=== PATIENT | male | born 1965 | race Caucasian/White ===

== ENCOUNTER → 2018-03-03 | Outpatient (CLI) | payer BC ==
[~2018-03-03] MED LIST: BYSTOLIC10 MG PO; BYSTOLIC5 MG PO; CEPHALEXIN500 MG PO; FENOFIBRATE145 MG PO; FISH OIL 1,0001 EAC2 PO; HYDROCHLOROTHIA25 MG PO; NIACIN500 M1 PO; NORVASC10 MG PO; PANTOPRAZOLE SO40 MG PO; VALACYCLOVIR1000 MG PO
--- NOTE | 2018-03-04 13:18 | Diagnostic Imaging Report ---
TECHNIQUE: Magnetic resonance imaging of the LEFT KNEE was performed WITHOUT injected contrast. HISTORY: Left knee pain COMPARISON: None available. FINDINGS: LIGAMENTS AND TENDONS: ACL: Intact PCL: Intact Collateral ligaments: Intact Iliotibial band: Unremarkable Popliteal tendon: Intact Extensor mechanism: Intact JOINT: Menisci: Medial: Horizontal tear involving the body and posterior horn meniscal extrusion. Flipped meniscal fragment into the meniscotibial recess coronal image 4. Lateral: Intact without tear Articular Cartilage: Medial Compartment: Diffuse high-grade cartilage loss with areas of full-thickness erosion and subchondral edema. Lateral Compartment: Diffuse low grade cartilage loss Patellofemoral Compartment: High-grade cartilage loss at the patellar apex Joint Fluid: Small joint effusion and 6.5 cm Cheng's cyst. BONE: No focal or infiltrative bone marrow replacing abnormality. No acute fracture. SOFT TISSUES: Otherwise, unremarkable. IMPRESSION: Medial meniscus horizontal tear of the body and posterior horn with flipped fragment into the meniscotibial recess. Medial tibiofemoral compartment high-grade cartilage loss with areas of full-thickness erosion and subchondral edema. Small joint effusion and large Cheng's cyst cyst. Signed by: Dr. Marquez Day M.D. on 03/04/2018 1:15 PM
== END ==
LOC: MRI 07:42
PROVIDERS: ATTEND Family Medicine
DX: M23.92 Unspecified internal derangement of left knee (principal)

== ENCOUNTER 2018-09-07 10:01 | Emergency (ER) | payer BC ==
[~2018-09-07] VITALS: Ht 177.8 cm; Wt 117.9 kg
--- OUTSIDE RECORDS SUMMARY | 2018-09-07 10:04 | XMS REPORT ---
Author Author [facility] Address Unknown Phone Unavailable Care Team Providers Care Mailing Jogger Name Role Phone MONIKA NASCIMENTO Unavailable Unavailable Problems This patient has no known problems. Allergies, Adverse Reactions, Alerts This patient has no known allergies or adverse reactions. Medications This patient has no known medications. Results Test Description Test Time Test Comments Text Results Atomic Results Result Comments MRI KNEE LEFT WO 2018-03-04 13:12:00 [facility] [address] [address] Patient Name: YOSEPH DOTSON MR #: [id number] : 1965 Age/Sex: 52/M Req #: [id number] [facility] Physician: Ordered by: NASCIMENTO ANDREW DO Report #: [id number] Location: MRI Room/Bed: Procedure: [id number] MRI/MRI KNEE LEFT WO Exam Date: Exam Time: REPORT STATUS: Signed TECHNIQUE: Magnetic resonance imaging of the LEFT KNEE was performed WITHOUT injected contrast. HISTORY: Left knee pain COMPARISON: None available. FINDINGS: LIGAMENTS AND TENDONS: ACL: Intact PCL: Intact Collateral ligaments: Intact Iliotibial band: Unremarkable Popliteal tendon: Intact Extensor mechanism: Intact JOINT: Menisci: Medial: Horizontal tear involving the body and posterior horn meniscal extrusion. Flipped meniscal fragment into the meniscotibial recess coronal image 4. Lateral: Intact without tear Articular Cartilage: Medial Compartment: Diffuse high-grade cartilage loss with areas of full-thickness erosion and subchondral edema. Lateral Compartment: Diffuse low grade cartilage loss Patellofemoral Compartment: High-grade cartilage loss at the patellar apex Joint Fluid: Small joint effusion and 6.5 cm Cheng's cyst. BONE: No focal or infiltrative bone marrow replacing abnormality. No acute fracture. SOFT TISSUES: Otherwise, unremarkable. IMPRESSION: Medial meniscus horizontal tear of the body and posterior horn with flipped fragment into the meniscotibial recess. Medial tibiofemoral compartment high-grade cartilage loss with areas of full-thickness erosion and subchondral edema. Small joint effusion and large Chegn's cyst cyst. Signed by: Dr. Monika Aguilar M.D. on 03/04/2018 1:15 PM Dictated By: MONIKA AGUILAR MD [id number] Transcribed By: SHAD on 03/04/18 1315 COPY TO: MONIKA NASCIMENTO DO
[2018-09-07] MEDS ORDERED: ASPIRIN 81 MG CHEW TAB PO NR (10:17)
[2018-09-07 11:30] LABS: BASOPHILS # (AUTO) 0.1 (0.0-0.1); BASOPHILS % 0.9 % (0.0-1.0); EOSINOPHILS # (AUTO) 0.1 (0.0-0.4); EOSINOPHILS % 2.2 % (0.0-6.0); HEMATOCRIT 47.6 % (38.2-49.6); LYMPHOCYTES # (AUTO) 1.5 (1.0-3.2); LYMPHOCYTES % 27.6 % (18.0-39.1); MEAN CORPUSCULAR HEMOGLOBIN 32.4 pg (28-32); MEAN CORPUSCULAR HGB CONC 35.7 g/dL (31-35); MEAN CORPUSCULAR VOLUME 90.8 fL (81-99); MONOCYTES # (AUTO) 0.7 (0.2-0.8); NEUTROPHILS # (AUTO) 3.1 (2.1-6.9); NEUTROPHILS % 55.8 % (38.7-80.0); PLATELET COUNT 206 x10e3/uL (140-360); RED BLOOD COUNT 5.24 x10e6/uL (4.3-5.7); RED CELL DISTRIBUTION WIDTH 12.8 % (11.7-14.4)
[2018-09-07 11:50] LABS: INR 0.92; PROTHROMBIN TIME 12.8 seconds (11.9-14.5)
[2018-09-07 11:51] LABS: PARTIAL THROMBOPLASTIN TIME 29.4 seconds (23.8-35.5)
[2018-09-07 11:57] LABS: ALANINE AMINOTRANSFERASE 56 IU/L (0-55); ALBUMIN/GLOBULIN RATIO 1.3 (0.8-2.0); ALKALINE PHOSPHATASE 55 IU/L (40-150); BLOOD UREA NITROGEN 14 mg/dL (7-26); BUN/CREATININE RATIO 14 (6-25); CALCIUM 9.5 mg/dL (8.4-10.2); CARBON DIOXIDE 26 mmol/L (22-29); CHLORIDE 104 mmol/L (98-107); CREATINE KINASE 88 IU/L (30-200); CREATININE, SERUM 1.03 mg/dL (0.72-1.25); EST GLOMERULAR FILTRATION RATE > 60 ML/MIN (60-); GLUCOSE 119 mg/dL (74-118); SODIUM 138 mmol/L (136-145)
--- NOTE | 2018-09-07 14:07 | Diagnostic Imaging Report ---
EXAM: CHEST 2 VIEWS, PA and lateral DATE: 09/07/2018 Time stamp on exam: 10:37 AM INDICATION: Chest pain COMPARISON: None FINDINGS: LINES/TUBES: None LUNGS: No consolidations or edema. PLEURA: No effusions or pneumothorax. HEART AND MEDIASTINUM: Normal size and contour. BONES AND SOFT TISSUES: No acute findings. IMPRESSION: No acute thoracic abnormality. Signed by: Dr. Edu Jenkins DO on 09/07/2018 2:03 PM
[2018-09-07] MEDS ORDERED: HYDRALAZINE HCL 20 MG/ML VIAL IV ONE (14:08)
[2018-09-07] MEDS ORDERED: NIFEDIPINE 10 MG CAP PO ONE (14:08)
[2018-09-07 15:22] LABS: CREATINE KINASE MB 0.9 ng/mL (0-5.0)
[2018-09-07 15:59] VITALS: BP 167/87
== END 2018-09-07 16:01 | disposition home or self-care (01) ==
LOC: ER 10:01
DX: R07.89 Other chest pain (principal); I10 Essential (primary) hypertension
CPT/HCPCS: 36415; 71046; 80053; 82550; 82553; 83036; 83880; 84484; 85025; 85610; 85730; 93005; 99284

== ENCOUNTER → 2018-10-05 | Outpatient (CLI) | payer BC ==
--- NOTE | 2018-10-05 18:20 | Diagnostic Imaging Report ---
Examination: Brain MRI without Contrast History: Memory loss. Comparison studies: None. Technique: Precontrast: Hi resolution Sag T1 with coronal and axial reformats. Axial DWI, T2, T2 flair, gradient echo or SWI Intravenous contrast: None. Findings: Structural lesions: No intra-or extra-axial masses. No hematomas. Atrophy: General: Symmetric and age appropriate. Focal: No disproportionate lobar, hippocampal, mesencephalic, pontine, or cerebellar atrophy. Neal matter: Cortex:No signal abnormalities. No encephalomalacia. Basal ganglia: No atrophy or signal abnormalities. Thalami: No signal abnormalities. Micro hemorrhages: None. White matter signal intensity: No signal abnormalities. Subarachnoid spaces: No signal abnormalities. Ventricles: Normal in size and configuration. No hydrocephalus. Hippocampi, fornix and mammillary bodies: Normal in size and symmetric. Other: Skull: No bone marrow abnormalities. Vessels: Expected flow voids present in the major arteries and dural sinuses.. Sella: Normal in size. No intra-or suprasellar abnormalities. Cranio-cervical junction: No abnormalities. Patent foramen magnum. No Chiari one malformation. Paranasal sinuses: No T2 hyperintense mucosal thickening. IMPRESSION: No intracranial abnormality. Signed by: Dr. Telma Rose M.D. on 10/05/2018 6:17 PM
== END ==
LOC: MRI 16:21
PROVIDERS: ATTEND Family Medicine
DX: R41.3 Other amnesia (principal)
CPT/HCPCS: 70551

== ENCOUNTER → 2019-07-07 | Day surgery (SDC) | payer BC ==
[2019-06-29 15:43] LABS: BASOPHILS % 0.3 % (0.0-1.0); EOSINOPHILS # (AUTO) 0.1 (0.0-0.4); EOSINOPHILS % 1.1 % (0.0-6.0); HEMATOCRIT 47.4 % (38.2-49.6); HEMOGLOBIN 16.6 g/dL (14.0-18.0); LYMPHOCYTES # (AUTO) 1.6 (1.0-3.2); LYMPHOCYTES % 25.6 % (18.0-39.1); MEAN CORPUSCULAR HEMOGLOBIN 32.4 pg (28-32); MEAN CORPUSCULAR VOLUME 92.4 fL (81-99); MONOCYTES # (AUTO) 0.6 (0.2-0.8); MONOCYTES % 10.4 % (4.4-11.3); NEUTROPHILS # (AUTO) 3.8 (2.1-6.9); NEUTROPHILS % 62.4 % (38.7-80.0); PLATELET COUNT 204 x10e3/uL (140-360); RED BLOOD COUNT 5.13 x10e6/uL (4.3-5.7); RED CELL DISTRIBUTION WIDTH 12.1 % (11.7-14.4)
[2019-06-29 16:02] LABS: ANION GAP 10.8 mmol/L (8-16); BLOOD UREA NITROGEN 15 mg/dL (7-26); BUN/CREATININE RATIO 16 (6-25); CALCIUM 9.7 mg/dL (8.4-10.2); CARBON DIOXIDE 29 mmol/L (22-29); CHLORIDE 103 mmol/L (98-107); CREATININE, SERUM 0.96 mg/dL (0.72-1.25); EST GLOMERULAR FILTRATION RATE > 60 ML/MIN (60-); GLUCOSE 90 mg/dL (74-118); POTASSIUM 3.8 mmol/L (3.5-5.1); SODIUM 139 mmol/L (136-145)
[~2019-07-07] MED LIST changes: +BUPIVACAINE 0.25% 30ML SDV INJ ONE; +DEXAMETHASONE SOD PHOS INJ 4 MG/ML VIAL ONE; +FENTANYL CITRATE/PF 100MCG/2 ML INJ ONE; +LIDOCAINE HCL 2% LOCAL INJ 5 ML SDV VIAL INJ ONE; +MIDAZOLAM HCL 2 MG/2 ML VIAL ONE; +ONDANSETRON HCL INJ 2MG/ML 2ML 2 MG/ML VIAL ONE; +PROPOFOL IV EMULSION 10 MG/ML 20 ML VIAL ONE; +ROCURONIUM BROMIDE 10 MG/ML 5ML VIAL ONE; +[UNRECOGNIZED DRUG - CODE] PO; +[UNRECOGNIZED DRUG - OTHER] PO; +[UNRECOGNIZED DRUG - OTHER] PO; +[UNRECOGNIZED DRUG - OTHER] PO; +[UNRECOGNIZED DRUG - OTHER] PO; +[UNRECOGNIZED DRUG - OTHER] PO
[2019-07-07 11:10] VITALS: BP 151/84
--- NOTE | 2019-07-07 16:53 | Operative Report ---
DATE OF PROCEDURE: 07/07/2019 SURGEON: Good Turner MD PREOPERATIVE DIAGNOSIS: Incarcerated umbilical hernia. POSTOPERATIVE DIAGNOSIS: Incarcerated umbilical hernia. OPERATION PERFORMED: Repair of incarcerated umbilical hernia with medium Ventralex patch. FLOOR AND WALL APPLIER LIQUID: HARRIS Yin. ANESTHESIA: General. COMPLICATIONS: None. ESTIMATED BLOOD LOSS: Minimal. DESCRIPTION OF PROCEDURE: With the patient lying in bed in the supine position under good general anesthesia, the abdomen was prepped with Betadine solution and draped in the usual manner. A semilunar subumbilical incision was made, which was carried down through the subcutaneous tissue down to the fascia. The fascia was then cleared all the way around the hernia sac. The hernia sac was then detached from the umbilicus and the hernia sac and contents were reduced back to the intra-abdominal cavity. The preperitoneal space was then developed without any difficulty and a pocket was created. A medium-sized Ventralex patch was then placed in the preperitoneal space and deployed without any problems. The defect was then closed transversely using interrupted sutures of 0 Ethibond anchoring the mesh with the repair. The whole area was then thoroughly irrigated. Perfect hemostasis was ascertained. The umbilicus then tacked back down to the midline fascia with 3-0 Vicryl. The subcutaneous tissue was approximated with 3-0 Vicryl and the skin was closed with subcuticular 5-0 Vicryl. Benzoin, Steri-Strips, and dressings were applied. The sponge, lap, and needle count was correct. The patient tolerated the procedure well and returned to the recovery room in stable condition. Good Turner MD JLR/MODL /[id number]
== END | disposition home or self-care (01) ==
LOC: OR 06:13
PROVIDERS: ATTEND Surgery
DX: K42.0 Umbilical hernia with obstruction, without gangrene (principal); G47.33 Obstructive sleep apnea (adult) (pediatric); I10 Essential (primary) hypertension; Z72.0 Tobacco use; Z01.810 Encounter for preprocedural cardiovascular examination; Z01.812 Encounter for preprocedural laboratory examination
CPT/HCPCS: 36415; 49587; 80048; 85025; 93005; C1781; J1100; J2001; J2250; J2405; J2704; J3010

== ENCOUNTER 2020-07-18 12:56 | Emergency (ER) | payer BC ==
[~2020-07-18] VITALS: Ht 177.8 cm; Wt 117.9 kg
[~2020-07-18 12:56] MED LIST changes: -BUPIVACAINE 0.25% 30ML SDV INJ ONE; -DEXAMETHASONE SOD PHOS INJ 4 MG/ML VIAL ONE; -FENTANYL CITRATE/PF 100MCG/2 ML INJ ONE; -LIDOCAINE HCL 2% LOCAL INJ 5 ML SDV VIAL INJ ONE; -MIDAZOLAM HCL 2 MG/2 ML VIAL ONE; -ONDANSETRON HCL INJ 2MG/ML 2ML 2 MG/ML VIAL ONE; -PROPOFOL IV EMULSION 10 MG/ML 20 ML VIAL ONE; -ROCURONIUM BROMIDE 10 MG/ML 5ML VIAL ONE
[2020-07-18] MEDS ORDERED: FAMOTIDINE 20 MG TAB PO STA (13:07)
[2020-07-18] MEDS ORDERED: ONDANSETRON HCL 4 MG ORAL DISINTEGRATING TAB PO STA (13:07)
[2020-07-18] MEDS ORDERED: HYDROCODONE/APAP 10MG-325MG TAB PO STA (13:07)
[2020-07-18] MEDS ORDERED: ONDANSETRON ODT4 MG PO (14:23)
[2020-07-18] MEDS ORDERED: PEPCID20 MG PO (14:23)
[2020-07-18] MEDS ORDERED: HYDROCODON-ACE1 EA11 PO (14:23)
[2020-07-18 14:57] VITALS: BP 154/89
== END 2020-07-18 15:00 | disposition home or self-care (01) ==
LOC: ER 13:18
DX: S00.83XA Contusion of other part of head, initial encounter (principal); M25.521 Pain in right elbow; M25.532 Pain in left wrist; V23.4XXA Motorcycle driver injured in collision with car, pick-up truck or van in traffic accident, initial encounter; Y92.488 Other paved roadways as the place of occurrence of the external cause; I10 Essential (primary) hypertension; F17.210 Nicotine dependence, cigarettes, uncomplicated
CPT/HCPCS: 70450; 72125; 99283; Q0162

== ENCOUNTER → 2020-08-06 | Outpatient (CLI) | payer BC ==
[~2020-08-06] MED LIST changes: +HYDROCODON-ACE1 EA11 PO; +ONDANSETRON ODT4 MG PO; +PEPCID20 MG PO
== END ==
LOC: MRI 07:38
PROVIDERS: ATTEND Family Medicine
DX: M25.571 Pain in right ankle and joints of right foot (principal); S86.311A Strain of muscle(s) and tendon(s) of peroneal muscle group at lower leg level, right leg, initial encounter

== ENCOUNTER 2021-02-05 09:15 | Observation (INO) | payer BC, OTHER ==
[~2021-02-05] VITALS: Ht 177.8 cm; Wt 114.8 kg
[2021-02-05] MEDS ORDERED: ASPIRIN 81 MG CHEW TAB PO ONE (09:30)
[2021-02-05] MEDS ORDERED: SODIUM CHLORIDE 0.9% 100 ML ONE (09:35)
[2021-02-05] MEDS ORDERED: IOPAMIDOL 370 MG/ML 200 ML INFUS..BTL INJ ONE (09:36)
[2021-02-05 09:49] LABS: BASOPHILS % 0.7 % (0.0-1.0); EOSINOPHILS # (AUTO) 0.1 (0.0-0.4); EOSINOPHILS % 1.1 % (0.0-6.0); HEMATOCRIT 47.8 % (38.2-49.6); HEMOGLOBIN 16.6 g/dL (14.0-18.0); LYMPHOCYTES # (AUTO) 1.1 (1.0-3.2); LYMPHOCYTES % 19.1 % (18.0-39.1); MEAN CORPUSCULAR HEMOGLOBIN 32.2 pg (28-32); MEAN CORPUSCULAR HGB CONC 34.7 g/dL (31-35); MEAN CORPUSCULAR VOLUME 92.6 fL (81-99); MONOCYTES # (AUTO) 0.7 (0.2-0.8); MONOCYTES % 12.7 % (4.4-11.3); NEUTROPHILS # (AUTO) 3.7 (2.1-6.9); PLATELET COUNT 210 x10e3/uL (140-360); RED BLOOD COUNT 5.16 x10e6/uL (4.3-5.7); RED CELL DISTRIBUTION WIDTH 12.2 % (11.7-14.4)
[2021-02-05 09:56] LABS: INR 0.96; PROTHROMBIN TIME 13.2 seconds (11.9-14.5)
[2021-02-05 09:57] LABS: PARTIAL THROMBOPLASTIN TIME 29.2 seconds (23.8-35.5)
[2021-02-05 10:05] LABS: ALBUMIN 4.3 g/dL (3.5-5.0); ALBUMIN/GLOBULIN RATIO 1.4 (0.8-2.0); ANION GAP 12.8 mmol/L (8-16); CALCIUM 8.9 mg/dL (8.4-10.2); CREATININE, SERUM 0.93 mg/dL (0.72-1.25); POTASSIUM 3.8 mmol/L (3.5-5.1)
[2021-02-05 10:12] LABS: CREATINE KINASE MB 0.9 ng/mL (0-5.0)
[2021-02-05] MEDS ORDERED: FLUORESCEIN SOD(OPTH) 1 MG STRP OP ONE (10:15)
[2021-02-05] MEDS ORDERED: FLUORESCEIN SOD(OPTH) 1 MG STRP ONE (10:23)
[2021-02-05] MEDS ORDERED: ERYTHROMYCIN (OPTH) 3.5 GM OINT OP ONE (10:45)
[2021-02-05] MEDS ORDERED: LORAZEPAM INJ 2 MG/ML VIAL IV ONE (12:30)
== END 2021-02-05 14:13 | disposition home or self-care (01) ==
LOC: ER 09:21 → ERHOLD 10:53
DX: R29.810 Facial weakness (principal); R53.1 Weakness
CPT/HCPCS: 36415; 70496; 70498; 70551; 80053; 82550; 82553; 82948; 84484; 85025; 85610; 85730; 93005; 99284; G0378; J2060; J7050; Q9967; U0002

== ENCOUNTER → 2021-12-31 | Outpatient (CLI) | payer BC ==
[~2021-12-31] MED LIST changes: +GADOBENATE DIMEGLUMINE 0 ML IV ONE; +GADOBENATE DIMEGLUMINE 1 ML IV ONE
[2021-12-31 12:07] LABS: CREATININE, SERUM 0.94 mg/dL (0.72-1.25)
== END ==
LOC: MRI 11:07
PROVIDERS: ATTEND Psychiatry & Neurology Neurology
DX: H81.90 Unspecified disorder of vestibular function, unspecified ear (principal); B02.21 Postherpetic geniculate ganglionitis; R41.89 Other symptoms and signs involving cognitive functions and awareness; Z86.69 Personal history of other diseases of the nervous system and sense organs
CPT/HCPCS: 36415; 70553; 82565; 84520; A9577